=== PATIENT | male | born 1965 | race Caucasian/White ===

== ENCOUNTER 2017-10-30 14:49 | Inpatient (IN) ==
[2017-10-30] MEDS ORDERED: 0.9 % Sodium Chloride 1,000 ML IVC ONE (15:13)
--- NOTE | 2017-10-30 15:20 | Emergency Department Note ---
Disposition Clinical Impression: Acute blood loss anemia, Elevated INR GI bleed Qualifiers: GI bleed type/associated pathology: unspecified gastrointestinal hemorrhage type Qualified Code(s): K92.2 - Gastrointestinal hemorrhage, unspecified Disposition: Admitted As Inpatient Condition: Undetermined Forms: ED Satisfaction Letter General Adult HPI - General Chief complaint: ED Recheck/Abnormal Lab/Rx Stated complaint: Needs blood Time Seen by Provider: 10/30/17 14:54 Source: patient, family Mode of arrival: private vehicle Limitations: no limitations Nursing Notes Reviewed: Yes Vital Signs Reviewed: Yes - History of Present Illness HPI Narrative: Patient is a 52-year-old male with past medical history including 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 Patient complains of shortness of breath and weakness for the past 2-3 days. He states the symptoms have been progressively worsening feels like he is very fatigued. He followed up at an urgent care for evaluation. Labs were obtained and the patient was told that his hemoglobin was 8.8 yesterday. His INR is 6.4 today. He was told that he needed a blood transfusion but they were unable to do it there. He went to a different urgent care where they were also unable to do a blood transfusion came here for further management. Patient has a history of GI bleed from duodenal ulcer back in August 2017. At that time he required 9 units of pRBCs. He presented with the same symptoms then as he does now, he had shortness of breath and weakness. Patient denies any blood loss that he has noticed. He has not had a bowel movement in 4 days. He struggles with constipation and was recently restarted on docusate. He denies hemoptysis, hematuria, new bruising. He denies any trauma. He denies chest pain or palpitations.f Pain Scale: 0 - Related Data Home Medications Medication Instructions Recorded Confirmed Atorvastatin [Lipitor] 40 mg PO HS 08/03/17 10/21/17 Folic Acid [FA-8] 0.8 mg PO DAILY 08/03/17 10/21/17 Gabapentin [Neurontin] 300 mg PO TID 08/03/17 10/21/17 Indomethacin [Indocin] 25 mg PO TID 08/03/17 10/21/17 Lisinopril [Zestril] 5 mg PO DAILY 08/03/17 10/21/17 Tamsulosin [Flomax] 0.4 mg PO DAILY 08/03/17 10/21/17 Verapamil [Isoptin] 80 mg PO TID 08/03/17 10/21/17 Warfarin perPT [Coumadin perPT] 7.5 mg PO DAILY 08/03/17 10/21/17 Amitriptyline 1 tab PO DAILY 10/21/17 10/21/17 Protonix 40 mg PO DAILY 10/21/17 10/21/17 Allergies Allergy/AdvReac Type Severity Reaction Status Date / Time Bee Pollen Allergy Hives Verified 10/21/17 12:40 Penicillins Allergy Hives Verified 08/03/17 19:30 All systems ED: reviewed and negative except as stated. Review of Systems: As Per HPI Constitutional: Reports: weakness. Denies: fever, chills Eyes: Denies: vision change ENT ED: Denies: throat pain, dysphagia Cardiovascular: Denies: chest pain, palpitations Respiratory: Reports: dyspnea. Denies: cough, wheezes, hemoptysis Gastrointestinal: Reports: constipation. Denies: abdominal pain, nausea, vomiting, diarrhea Genitourinary: Reports: other (urinary retention). Denies: urgency, hematuria Musculoskeletal: Denies: back pain Neurological: Denies: headache, numbness, confusion Endocrine: Reports: fatigue Hematological/Lymphatic: Reports: easy bleeding (on warfarin) Past Medical History - Past Medical History Attestation: Yes The following information was validated with the patient. Source: patient Medical history: Reports: hypertension, renal disease, TIA Psychiatric history: Reports: no psych history - Social History Smoking Status: Current every day smoker Smokeless Tobacco Status: No Alcohol use: Reports: none Drug use: Reports: none Physical Exam - General General appearance: alert, in no apparent distress - Head Head exam: atraumatic, normocephalic - Eye Eye exam: Present: PERRL, EOMI - ENT ENT exam: mucous membranes dry - Chest Chest inspection: Present: symmetric chest wall rise - Respiratory Respiratory exam: Present: normal lung sounds bilaterally. Absent: respiratory distress, wheezes - Cardiovascular Cardiovascular exam: Present: regular rate, normal rhythm, other (radial pulses present and equal bilaterally. mild bilateral ankle edema). Absent: clicks - Abdominal Exam Abdominal exam: Present: soft, Non-Tender, normal bowel sounds. Absent: distention, guarding, rebound, rigidity - Rectal Exam Center Manager present during exam: Yes (RN) Rectal exam: Present: normal rectal tone. Absent: hemorrhoids - Neurological Exam Neurological exam: Present: alert, oriented X3, CN II-XII intact - Expanded Neurological Exam Patient oriented to: Present: person, place, time Speech: Present: fluid speech Cranial nerves: EOM function (II, III, IV, ): Normal, facial sensation (V): Normal, facial palsy (VII): Normal, spinal accessory function (XI): Normal, tongue deviation (XII): Normal Motor strength - LUE: 5/5 Motor strength - RUE: 5/5 Motor strength - LLE: 5/5 Motor strength - RLE: 5/5 Coma Scale Eye Opening: Spontaneous Coma Scale Motor Response: Obeys Commands Coma Scale Verbal Response: Oriented Coma Scale Total: 15 - Psychiatric Psychiatric exam: Present: normal affect, normal mood - Skin Skin exam: Present: warm. Absent: pallor Course Vital Signs Temperature 97.7 F 10/30/17 14:52 Pulse Rate 93 10/30/17 14:52 Respiratory Rate 12 10/30/17 14:52 Blood Pressure 103/71 10/30/17 14:52 O2 Sat by Pulse Oximetry 98 10/30/17 14:52 Temperature 97.7 F 10/30/17 15:03 Pulse Rate 85 10/30/17 15:54 Respiratory Rate 15 10/30/17 15:54 Blood Pressure 108/83 10/30/17 15:54 O2 Sat by Pulse Oximetry 98 10/30/17 15:54 Oxygen Delivery Oxygen Delivery Room Air Medical Decision Making - [facility] Narrative Medical decision making narrative: Patient has a history of prior GI bleed requiring multiple units of blood and plasma. The patient has not noticed any blood loss, melena, hematochezia. He is feeling short of breath and weak. His vitals remained stable. We will check CBC, BMP, PT/INR, troponin. I will check stool for Hemoccult blood. Check chest x-ray for shortness of breath. 16:00 Hemoglobin is decreased from yesterday. Yesterday it was 8.8 and today it is 6.9. INR continues to trend up. 7.4 today. Hemoccult positive. Vitals remained stable. He will need reversal of his INR and blood transfusion. He will also need to be admitted for further care. Had a discussion with patient and family at bedside. Discussed risks and benefits of blood transfusion and plasma transfusion. Patient and family gave their verbal consent. We will initially transfuse 2 units of PRBCs and 2 units of FFP. We will also give vitamin K. BUN 82, Cr 1.75. Troponin normal. CXR and left basilar atelectasis. No wheezing on exam, no productive cough. 17:00 Hospitalist consulted. 17:05 Discussed with hospitalist, Dr. Barnes, accepts patient. GI consult placed. All questions answered and patient and family agreeable to plan of care - Medical Records Medical records reviewed: Yes I reviewed the patient's medical records. - Lab Data Lab results reviewed: Yes I reviewed the patient's lab results. Result diagrams: 10/30/17 15:07 10/30/17 15:07 Lab Results 10/30/17 10/30/17 10/30/17 Range/Units 15:07 15:07 15:07 WBC 3.9 L (4.3-11.1) K/mcL RBC 2.36 L (4.19-5.50) M/mcL Hgb 6.9 L D (12.9-16.9) g/dL Hct 22.0 L (37.5-50.1) % MCV 93.2 (83.0-100.0) fL MCH 29.2 (28.0-33.3) pg MCHC 31.4 L (31.6-35.5) g/dL RDW 16.2 H (11.5-14.5) % Plt Count 93 L D (140-400) K/mcL MPV 14.1 H (9.4-12.4) fL Immature Gran % Test Not Performed Seg Neutrophils % 60.0 % Lymphocytes % 34.0 % Monocytes % 6.0 % Eosinophils % Test Not Performed Basophils % Test Not Performed Neutrophils # 2.3 (1.6-8.9) K/mcL Lymphocytes # 1.3 (0.6-4.6) K/mcL Monocytes # 0.2 (0.0-1.3) K/mcL Eosinophils # Test Not Performed Basophils # Test Not Performed Platelet Estimate Slight Decrease L (Normal) Immature Plt Fraction 14.3 H (1.1-6.1) % PT 83.6 H* (9.4-12.1) Seconds INR 7.4 H* Sodium 136 (136-145) mEq/L Potassium 4.6 (3.5-5.1) mEq/L Chloride 110 H (98-107) mEq/L Carbon Dioxide 21 L (23-29) mEq/L BUN 82 H (6-20) mg/dL Creatinine 1.75 H (0.70-1.30) mg/dL Est GFR ( Amer) 49 L (> 60) Est GFR (Non-Af Amer) 41 L (> 60) BUN/Creatinine Ratio 47 H (6-26) Glucose 94 (70-105) mg/dL Calculated Osmolality 307 H (280-300) Calcium 8.9 (8.6-10.3) mg/dL Troponin I < 0.03 (< 0.04) ng/mL Stool Occult Bld Scrn (Negative) Blood Type Antibody Screen Crossmatch 10/30/17 10/30/17 Range/Units 15:37 16:09 WBC (4.3-11.1) K/mcL RBC (4.19-5.50) M/mcL Hgb (12.9-16.9) g/dL Hct (37.5-50.1) % MCV (83.0-100.0) fL MCH (28.0-33.3) pg MCHC (31.6-35.5) g/dL RDW (11.5-14.5) % Plt Count (140-400) K/mcL MPV (9.4-12.4) fL Immature Gran % Seg Neutrophils % % Lymphocytes % % Monocytes % % Eosinophils % Basophils % Neutrophils # (1.6-8.9) K/mcL Lymphocytes # (0.6-4.6) K/mcL Monocytes # (0.0-1.3) K/mcL Eosinophils # Basophils # Platelet Estimate (Normal) Immature Plt Fraction (1.1-6.1) % PT (9.4-12.1) Seconds INR Sodium (136-145) mEq/L Potassium (3.5-5.1) mEq/L Chloride (98-107) mEq/L Carbon Dioxide (23-29) mEq/L BUN (6-20) mg/dL Creatinine (0.70-1.30) mg/dL Est GFR ( Amer) (> 60) Est GFR (Non-Af Amer) (> 60) BUN/Creatinine Ratio (6-26) Glucose (70-105) mg/dL Calculated Osmolality (280-300) Calcium (8.6-10.3) mg/dL Troponin I (< 0.04) ng/mL Stool Occult Bld Scrn Positive A (Negative) Blood Type A POSITIVE Antibody Screen NEGATIVE Crossmatch See Detail - Radiology Data Radiology results reviewed: Yes I reviewed the patient's radiology results. Chest X-Ray 10/30/17 15:16 IMPRESSION: Shallow inspiration with mild left basilar atelectasis. D/ / Girish Humphrey MD / Girish Humphrey MD Interpreting Provider: Girish Humphrey MD - EKG Data EKG #1 EKG attestation: Yes I reviewed and interpreted this EKG. EKG results narrative: EKG on 10/30/2017 at 1505 shows sinus rhythm with rate 86. Normal axis. QTc 449. UT interval 209.. No evidence of ST elevation or depression.
[2017-10-30 15:55] LABS: Hemoglobin 6.9 g/dL (12.9-16.9); Immature Platelets 14.3 % (1.1-6.1); Lymphocytes # 1.3 K/mcL (0.6-4.6); Mean Corpuscular HGB Conc 31.4 g/dL (31.6-35.5); Mean Corpuscular Hemoglobin 29.2 pg (28.0-33.3); Mean Corpuscular Volume 93.2 fL (83.0-100.0); Mean Platelet Volume 14.1 fL (9.4-12.4); Monocytes # 0.2 K/mcL (0.0-1.3); Red Blood Count 2.36 M/mcL (4.19-5.50); Red Cell Distribution Width 16.2 % (11.5-14.5)
[2017-10-30 16:04] LABS: Platelet Count 93 K/mcL (140-400)
[2017-10-30 16:12] LABS: BUN/Creatinine Ratio 47 (6-26); Blood Urea Nitrogen 82 mg/dL (6-20); Calcium 8.9 mg/dL (8.6-10.3); Carbon Dioxide 21 mEq/L (23-29); Chloride 110 mEq/L (98-107); Glucose 94 mg/dL (70-105); Osmolality,Calculated 307 (280-300); Potassium 4.6 mEq/L (3.5-5.1); Sodium 136 mEq/L (136-145); Troponin I < 0.03 ng/mL (< 0.04); eGFR For Non-African Americans 41 (> 60)
[2017-10-30 16:13] LABS: INR 7.4; Prothrombin Time 83.6 Seconds (9.4-12.1)
[2017-10-30 16:40] LABS: Neutrophils # 2.3 K/mcL (1.6-8.9); Platelet Estimate Slight Decrease (Normal)
[2017-10-30] MEDS ORDERED: Pantoprazole 40 MG in 0.9 % Sodium Chloride Mini Bag 100 ML IVC SCH (17:15)
--- NOTE | 2017-10-30 17:58 | Emergency Department Note ---
Disposition Clinical Impression: Acute blood loss anemia, Elevated INR GI bleed Qualifiers: GI bleed type/associated pathology: unspecified gastrointestinal hemorrhage type Qualified Code(s): K92.2 - Gastrointestinal hemorrhage, unspecified Disposition: Admitted As Inpatient Condition: Undetermined Forms: ED Satisfaction Letter General Adult HPI - General Chief complaint: ED Recheck/Abnormal Lab/Rx Stated complaint: Needs blood Time Seen by Provider: 10/30/17 14:54 Source: patient, family Mode of arrival: private vehicle Limitations: no limitations - History of Present Illness Pain Scale: 0 - Related Data Home Medications Medication Instructions Recorded Confirmed Atorvastatin [Lipitor] 40 mg PO HS 08/03/17 10/21/17 Folic Acid [FA-8] 0.8 mg PO DAILY 08/03/17 10/21/17 Gabapentin [Neurontin] 300 mg PO TID 08/03/17 10/21/17 Indomethacin [Indocin] 25 mg PO TID 08/03/17 10/21/17 Lisinopril [Zestril] 5 mg PO DAILY 08/03/17 10/21/17 Tamsulosin [Flomax] 0.4 mg PO DAILY 08/03/17 10/21/17 Verapamil [Isoptin] 80 mg PO TID 08/03/17 10/21/17 Warfarin perPT [Coumadin perPT] 7.5 mg PO DAILY 08/03/17 10/21/17 Amitriptyline 1 tab PO DAILY 10/21/17 10/21/17 Protonix 40 mg PO DAILY 10/21/17 10/21/17 Allergies Allergy/AdvReac Type Severity Reaction Status Date / Time Bee Pollen Allergy Hives Verified 10/21/17 12:40 Penicillins Allergy Hives Verified 08/03/17 19:30 Constitutional: Reports: weakness. Denies: fever, chills Eyes: Denies: vision change ENT ED: Denies: throat pain, dysphagia Cardiovascular: Denies: chest pain, palpitations Respiratory: Reports: dyspnea. Denies: cough, wheezes, hemoptysis Gastrointestinal: Reports: constipation. Denies: abdominal pain, nausea, vomiting, diarrhea Genitourinary: Reports: other (urinary retention). Denies: urgency, hematuria Musculoskeletal: Denies: back pain Neurological: Denies: headache, numbness, confusion Endocrine: Reports: fatigue Hematological/Lymphatic: Reports: easy bleeding (on warfarin) Past Medical History - Past Medical History Medical history: Reports: hypertension, renal disease, TIA Psychiatric history: Reports: no psych history - Social History Smoking Status: Current every day smoker Smokeless Tobacco Status: No Alcohol use: Reports: none Drug use: Reports: none Physical Exam - General Limitations: no limitations General appearance: alert, in no apparent distress Course Vital Signs Temperature 97.7 F 10/30/17 14:52 Pulse Rate 93 10/30/17 14:52 Respiratory Rate 12 10/30/17 14:52 Blood Pressure 103/71 10/30/17 14:52 O2 Sat by Pulse Oximetry 98 10/30/17 14:52 Temperature 97.7 F 10/30/17 15:03 Pulse Rate 84 10/30/17 17:57 Respiratory Rate 14 10/30/17 17:57 Blood Pressure 139/92 10/30/17 17:57 O2 Sat by Pulse Oximetry 96 10/30/17 17:57 Oxygen Delivery Oxygen Delivery Room Air Medical Decision Making - Lab Data Result diagrams: 10/30/17 15:07 10/30/17 15:07 Lab Results 10/30/17 10/30/17 10/30/17 Range/Units 15:07 15:07 15:07 WBC 3.9 L (4.3-11.1) K/mcL RBC 2.36 L (4.19-5.50) M/mcL Hgb 6.9 L D (12.9-16.9) g/dL Hct 22.0 L (37.5-50.1) % MCV 93.2 (83.0-100.0) fL MCH 29.2 (28.0-33.3) pg MCHC 31.4 L (31.6-35.5) g/dL RDW 16.2 H (11.5-14.5) % Plt Count 93 L D (140-400) K/mcL MPV 14.1 H (9.4-12.4) fL Immature Gran % Test Not Performed Seg Neutrophils % 60.0 % Lymphocytes % 34.0 % Monocytes % 6.0 % Eosinophils % Test Not Performed Basophils % Test Not Performed Neutrophils # 2.3 (1.6-8.9) K/mcL Lymphocytes # 1.3 (0.6-4.6) K/mcL Monocytes # 0.2 (0.0-1.3) K/mcL Eosinophils # Test Not Performed Basophils # Test Not Performed Platelet Estimate Slight Decrease L (Normal) Immature Plt Fraction 14.3 H (1.1-6.1) % PT 83.6 H* (9.4-12.1) Seconds INR 7.4 H* Sodium 136 (136-145) mEq/L Potassium 4.6 (3.5-5.1) mEq/L Chloride 110 H (98-107) mEq/L Carbon Dioxide 21 L (23-29) mEq/L BUN 82 H (6-20) mg/dL Creatinine 1.75 H (0.70-1.30) mg/dL Est GFR ( Amer) 49 L (> 60) Est GFR (Non-Af Amer) 41 L (> 60) BUN/Creatinine Ratio 47 H (6-26) Glucose 94 (70-105) mg/dL Calculated Osmolality 307 H (280-300) Calcium 8.9 (8.6-10.3) mg/dL Troponin I < 0.03 (< 0.04) ng/mL Stool Occult Bld Scrn (Negative) Blood Type Antibody Screen Crossmatch 10/30/17 10/30/17 Range/Units 15:37 16:09 WBC (4.3-11.1) K/mcL RBC (4.19-5.50) M/mcL Hgb (12.9-16.9) g/dL Hct (37.5-50.1) % MCV (83.0-100.0) fL MCH (28.0-33.3) pg MCHC (31.6-35.5) g/dL RDW (11.5-14.5) % Plt Count (140-400) K/mcL MPV (9.4-12.4) fL Immature Gran % Seg Neutrophils % % Lymphocytes % % Monocytes % % Eosinophils % Basophils % Neutrophils # (1.6-8.9) K/mcL Lymphocytes # (0.6-4.6) K/mcL Monocytes # (0.0-1.3) K/mcL Eosinophils # Basophils # Platelet Estimate (Normal) Immature Plt Fraction (1.1-6.1) % PT (9.4-12.1) Seconds INR Sodium (136-145) mEq/L Potassium (3.5-5.1) mEq/L Chloride (98-107) mEq/L Carbon Dioxide (23-29) mEq/L BUN (6-20) mg/dL Creatinine (0.70-1.30) mg/dL Est GFR ( Amer) (> 60) Est GFR (Non-Af Amer) (> 60) BUN/Creatinine Ratio (6-26) Glucose (70-105) mg/dL Calculated Osmolality (280-300) Calcium (8.6-10.3) mg/dL Troponin I (< 0.04) ng/mL Stool Occult Bld Scrn Positive A (Negative) Blood Type A POSITIVE Antibody Screen NEGATIVE Crossmatch See Detail Attestation Statement - Attestation Attestation: I examined this patient and my medical decision-making was reviewed with the Resident Physician. I agree with the documented findings, disposition and treatment plan as described except to the extent set forth below. Brown heme positive stool on rectal examination. Hemodynamic been normal while in the emergency department. I discussed the risk and benefits of blood and plasma transfusion with the patient at bedside, as well as with his family members. He agreed to proceed. He has a soft, nontender abdomen on my examination. Vitamin K, red cells and plasma ordered. Patient will be admitted.
[2017-10-30] MEDS ORDERED: Acetaminophen 325 MG TABLET PO PRN (18:03)
[2017-10-30] MEDS ORDERED: Naloxone 0.4 MG/ML INJ IVP PRN (18:03)
[2017-10-30] MEDS ORDERED: 0.9 % Sodium Chloride 250 ML ONE (18:25)
--- NOTE | 2017-10-30 18:32 | Internal Med History&Physical ---
<AlexsandrafloydcandelariaSolomon joaquin - Last Filed: 10/30/17 19:17> Date of Encounter: 10/30/17 Time of Encounter: 17:30 Internal Medicine - H&P: HPI Chief complaint: Weakness/SOB/Drop in Hgb Admitted From: Emergency Dept Plans for Post Hospital Care: Home History of present illness: Mr. Humphrey is a 52 year old male w/PMH of HTN, HLD, urinary retention, chronic constipation, CVA/TIA, CKD, and previous GI bleed in August 2017 presents from the ED w/CC of weakness, SOB, and drop in Hgb for the past 2-3 days. Pt. went to Urgent Care yesterday and Hgb was 8.8. INR is 7.4 today. Pt. reports previous GI bleed in August 2017 which required transfusion of 9 units of PRBCs and 1 unit FFP at [facility]. States his sx are the same as in August. Reports no BM in 4 days. No alleviating or aggravating factors. Pt. reports weakness, fatigue, constipation, and SOB but denies recent illness, fever, chills, nausea, vomiting , hemoptysis, hematuria, new bruising, trauma, headache, changes in vision, unusual bleeding, abdominal pain, diarrhea, dizziness, lightheadedness, numbness , tingling, pre-syncope, or syncope. Past Med Surg Social Fam HX - Past Medical History Source: patient, old records reviewed, obtained from family Medical history: CVA, GI bleed, hyperlipidemia, hypertension, renal disease, TIA Additional medical history: Open heart sugery july 2015. Brain surgery may 2016. 10 TIAs. CVA w/residual weakness of right side Psychiatric history: no psych history - Past Surgical History Additional surgical history: AORTIC VALVE REPLACEMENT. wrist surgery rt. Open heart sugery july 2015. Brain surgery may 2016. Stomach surgery - Social History Smoking Status: Current every day smoker Packs per day: 4-5 cigarettes daily Smokeless Tobacco Status: No Alcohol use: none Drug use: none Current living situation: Home, With Family Activity Level: Independent ambulation Recent Out of Country Travel Within the Last 8 Weeks: No Exposure or Possible Exposure to Illness During Travel: No - Family History Father History Unknown: Yes Race: Family Member Ethnicity: Non- Living Status: Mother Race: Family Member Ethnicity: Non- Living Status: Age at : 68 Cause of : CVA Hx Family Cardiac Disorders: Yes (CVA) Hx Family Neurologic Disorders: Yes (CVA) Brother Race: Family Member Ethnicity: Non- Living Status: Age at : 50 Cause of : Brain aneurysm Hx Family Cardiac Disorders: Yes (Brain aneurysm) Internal Medicine - H&P: Meds Albuterol Sulfate [Albuterol Inhaler] 1 puff IH Q4H PRN 10/30/17 [History] Amitriptyline HCl 100 mg PO HS 10/30/17 [History] Aspirin [Lo-Dose Aspirin EC] 81 mg PO DAILY 10/30/17 [History] Atorvastatin [Lipitor] 40 mg PO HS 10/30/17 [History] Docusate [Colace] 100 mg PO DAILY PRN 10/30/17 [History] Ferrous Sulfate 325 mg PO DAILY 10/30/17 [History] Folic Acid 0.8 mg PO DAILY 10/30/17 [History] Gabapentin [Neurontin] 300 mg PO TID 10/30/17 [History] Lisinopril/Hydrochlorothiazide [Zestoretic 20-25 mg Tablet] 1 tab PO DAILY 10/30 [History] Melatonin 5 mg PO HS PRN 10/30/17 [History] Pantoprazole Sodium [Protonix] 40 mg PO DAILY 10/30/17 [History] Sennosides [Senna] 17.2 mg PO HS PRN 10/30/17 [History] Tamsulosin [Flomax] 0.4 mg PO DAILY 10/30/17 [History] Umeclidinium Brm/Vilanterol Tr [Anoro Ellipta 62.5-25 Mcg INH] 1 puff IH DAILY 10/30/17 [History] Verapamil HCl [Verapamil ER] 120 mg PO DAILY 10/30/17 [History] Warfarin [Coumadin] 11.25 mg PO [id number] 10/30/17 [History] Warfarin [Coumadin] 15 mg PO SUTH 10/30/17 [History] 3 Allergy/AdvReac Type Severity Reaction Status Date / Time Bee Pollen Allergy Hives Verified 10/30/17 19:37 Penicillins Allergy Hives Verified 10/30/17 19:37 tree nut Allergy Swelling Verified 10/30/17 19:37 of Lip/Tongue/Throat All Systems PM: A 10-system review of systems was performed and is negative for pertinent findings except as documented above in the HPI. - Constitutional Constitutional: as per HPI, fatigue, weakness, no chills, no fever(s), no night sweats - EENT Eyes: no change in vision, no discharge, no pain, no photophobia Ears: no ear discharge, no ear pain, no tinnitus Nose, mouth and throat: no dysphagia, no nasal discharge, no neck pain, no sore throat - Breasts Breasts: as per HPI - Cardiovascular Cardiovascular ROS IM: as per HPI, dyspnea, dyspnea on exertion, no chest pain, no diaphoresis, no lightheadedness, no palpitations, no syncope - Respiratory Respiratory: as per HPI, dyspnea, dyspnea on exertion, no cough, no wheezing, no excessive phlegm production - Gastrointestinal Gastrointestinal: as per HPI, constipation, no abdominal pain, no diarrhea, no hematemesis, no hematochezia, no melena, no nausea, no vomiting - Genitourinary Genitourinary ROS male: as per HPI, difficulty urinating - Musculoskeletal Musculoskeletal ROS IM: no numbness, no tingling - Integumentary Integumentary IM: no rash, no unusual bruising - Neurological Neurological ROS: as per HPI, weakness, no confusion, no convulsions, no focal weakness, no numbness, no tingling, no tremor(s) - Psychiatric Psychiatric: as per HPI - Endocrine Endocrine IM: as per HPI - Hematologic/Lymphatic Hematologic/Lymphatic: no easy bruising - Allergic/Immunologic Allergic/Immunologic: as per HPI - Constitutional Vitals: Temp Pulse Resp BP Pulse Ox 97.7 F 84 14 139/92 96 10/30/17 15:03 10/30/17 17:57 10/30/17 17:57 10/30/17 17:57 10/30/17 17:57 General appearance: Present: mild distress (Fatigue/weakness), A&O X 3, pleasant , underweight, answers questions appropriately Exam: Pt. examined at bedside in ED. Pt. was sleepy and reports severe weakness over the past several days similar to GI bleed in August 2017. States he has not had BM in several (4) days. Reports hx of constipation. Also reports SOB. Denies unusual bleeding. HR RRR @ 85. RR 16. Temp 98.5F. BP 128/89. SpO2 98% on RA. Pt. denies other complaints during exam. - Head Head exam: Present: atraumatic, normocephalic - Eye Eye exam: Present: PERRL, conjuntiva pink, sclera anicteric Pupils: Present: PERRL - ENT ENT exam: Present: normal exam - Neck Neck exam general surgery: Present: normal inspection, supple, trachea midline. Absent: lymphadenopathy - Respiratory Respiratory exam: Present: CTAB. Absent: accessory muscle use, rales, rhonchi, wheezes - Cardiovascular Cardiovascular exam: Present: RRR, +S1, +S2. Absent: diastolic murmur, gallop, rubs, systolic murmur - GI/Abdominal GI/Abdominal exam: Present: normal bowel sounds, soft, no peritoneal signs. Absent: distended, tenderness - Rectal Rectal exam: Present: deferred - Additional comments: exam deferred. - Extremities Exam Extremities exam: Present: warm, radial pulses palpable and symmetrical. Absent : calf tenderness, cyanotic, pedal edema - Back Exam Back exam: Present: normal inspection - Neurological Exam Neurological exam: Present: alert, CN II-XII intact, oriented X3, no focal deficits. Absent: pronater drift, facial droop, speech deficit - Psychiatric Psychiatric exam: Present: anxious - Skin Skin exam: Present: dry, intact Internal Med - H&P Results - Labs CBC & Chem 7: 10/30/17 15:07 10/30/17 15:07 Labs: Short CBC 10/30/17 Range/Units 15:07 WBC 3.9 L (4.3-11.1) K/mcL Hgb 6.9 L D (12.9-16.9) g/dL Hct 22.0 L (37.5-50.1) % Plt Count 93 L D (140-400) K/mcL Neutrophils # 2.3 (1.6-8.9) K/mcL BMP 10/30/17 15:07 Sodium 136 Potassium 4.6 Chloride 110 H Carbon Dioxide 21 L BUN 82 H Creatinine 1.75 H Glucose 94 Calcium 8.9 Cardiac Enzymes 10/30/17 Range/Units 15:07 Troponin I < 0.03 (< 0.04) ng/mL - Impressions ITS Impressions Chest X-Ray 10/30/17 15:16 IMPRESSION: Shallow inspiration with mild left basilar atelectasis. D/ / Girish Humphrey MD / Girish Humphrey MD Interpreting Provider: Girish Humphrey MD - Diagnostic Studies Chest x-ray Additional comments: Impressions Chest X-Ray 10/30/17 15:16 IMPRESSION: Shallow inspiration with mild left basilar atelectasis. D/ / Girish Humphrey MD / Girish Humphrey MD Interpreting Provider: Girish Humphrey MD - Assessment and plan (1) GI bleed Current Visit: Yes Status: Acute Assessment and plan: Acute GI bleed. Pt. reports weakness, SOB, and drop in Hgb for the past 2-3 days. Pt. went to Urgent Care yesterday and Hgb was 8.8. INR is 7.4 today. Pt. reports previous GI bleed in August 2017 which required transfusion of 9 units of PRBCs and 1 unit FFP at [facility]. Old medical records ordered. States his sx are the same as in August. Pt. on Coumadin d/t aortic pig valve replacement and hx of CVA/ TIAs x10. Pt. denies unusual bleeding, however fecal hemoccult positive. Pt. typed and screened and is A positive with negative antibody screen. GI consult ordered and discussed with Dr. Raines with recommendation to begin PRBC transfusion now before patient's Hgb drops too low as well as close monitoring of patient's INR. Recommendation for INR to be between 1.5 and 2.0 for EGD. I appreciate the consult and recommendations as always. Platelets 93 on admission. 2 units PRBCs ordered in the ED along with 2 units FFP. 2 additional units of PRBCs ordered due to patient's previous history. H&H every 4 hours. Consider placing pt. to ICU under recommendation of Dr. Raines if Hgb continues to drop. NPO except medications. 0.9 NS IV fluids @ 100 mLs/HR. Falls/safety precautions and up with assist d/t weakness. Protonix drip. Pt. discussed w/Dr. Barnes who agrees w/plan of care. Pt. is high risk for further morbidity and complications d/t current GI bleed of unknown origin, drop in Hgb from 8.8 to 6.9 today, hx of GI bleed in August 2017 requiring transfusion of 9 units PRBCs, hx of TIAs/CVA/aortic pig valve on Coumadin, INR of 7.4 today, hx, and risk factors. Inpatient. Qualifiers: GI bleed type/associated pathology: unspecified gastrointestinal hemorrhage type Qualified Code(s): K92.2 - Gastrointestinal hemorrhage, unspecified (2) Acute blood loss anemia Current Visit: Yes Status: Acute Assessment and plan: Acute blood loss anemia. Pt. states current sx same as in August 2017 w/previous GI bleed requiring transfusion of 9 units of PRBCs and 1 unit FFP. Hgb 8.8 yesterday. 6.9 today. Pt. typed and screened and is A positive w/negative antibody screen. Platelets 93 on admission. 2 units PRBCs ordered in the ED along with 2 units FFP. 2 additional units of PRBCs ordered due to patient's previous history. H&H every 4 hours. Fecal Hemoccult positive. Patient denies unusual bleeding. (3) Elevated INR Current Visit: Yes Status: Acute Assessment and plan: Acutely elevated INR of 7.4 today. Pt. on Coumadin d/t hx of pig valve and CVA/ TIAs. Pt. given Phytonadione in ED. Monitor f/u labs closely to determine need for additional vitamin K. GI consulted and pt. discussed w/Dr. Raines w/ recommendation for INR between 1.5 and 2.0 for EGD. (4) HTN (hypertension) Current Visit: Yes Status: Chronic Assessment and plan: Hx of chronic HTN. Monitor pt. and VS. Continue patient's lisinopril and verapamil. Qualifiers: Hypertension type: essential hypertension Qualified Code(s): I10 - Essential (primary) hypertension (5) HLD (hyperlipidemia) Current Visit: Yes Status: Chronic Assessment and plan: Hx of chronic HLD. Lipid panel in a.m. labs. Continue pts. Lipitor. Qualifiers: Hyperlipidemia type: pure hypercholesterolemia Qualified Code(s): E78.00 - Pure hypercholesterolemia, unspecified; E78.0 - Pure hypercholesterolemia (6) CKD (chronic kidney disease) stage 3, GFR 30-59 ml/min Current Visit: Yes Status: Chronic Assessment and plan: Hx of CKD, currently stage 3 w/GFR of 41 and creatinine of 1.75. Monitor I&O and daily weight. Will avoid nephrotoxins. 0.9 NS IV fluids @ 100 mLs/HR. Monitor pt. and f/u labs. (7) Hx-TIA (transient ischemic attack) Current Visit: Yes Status: Resolved Assessment and plan: Hx of CVA/TIAs x10. Currently stable. Some residual weakness remaining on right side. (8) DVT prophylaxis Current Visit: Yes Status: Acute Assessment and plan: Bilateral SCDs on LEs for DVT prophylaxis d/t current GI bleed. (9) Weakness Current Visit: Yes Status: Acute Assessment and plan: Acute generalized weakness d/t current GI bleed and acute blood loss anemia. Transfuse w/PRBCs and FFP as needed. Monitor pt. and f/u labs. Cardiac telemetry. Falls/safety precautions and up with assist only. - Time Spent With Patient Total time spent is greater than 50% in coordination of care (as documented) at patient's floor/unit and/or counseling patient: Greater than 35 minutes <Lorraine Barnes - Last Filed: 10/31/17 00:56> Date of Encounter: 10/31/17 Internal Medicine - H&P: HPI History of present illness: Mr. Humphrey is a 52 year old male All Systems PM: A 10-system review of systems was performed and is negative for pertinent findings except as documented above in the HPI. - Constitutional Vitals: Temp Pulse Resp BP Pulse Ox 98.2 F 98 17 146/108 98 10/31/17 00:37 10/31/17 00:37 10/31/17 00:37 10/31/17 00:37 10/31/17 00:37 Internal Med - H&P Results - Labs CBC & Chem 7: 10/31/17 00:18 10/30/17 15:07 Labs: Short CBC 10/31/17 Range/Units 00:18 Hgb 8.8 L D (12.9-16.9) g/dL Hct 25.7 L (37.5-50.1) % - Assessment and plan (1) GI bleed Current Visit: Yes Status: Acute Qualifiers: GI bleed type/associated pathology: unspecified gastrointestinal hemorrhage type Qualified Code(s): K92.2 - Gastrointestinal hemorrhage, unspecified (2) Acute blood loss anemia Current Visit: Yes Status: Acute (3) Elevated INR Current Visit: Yes Status: Acute (4) HTN (hypertension) Current Visit: Yes Status: Chronic Qualifiers: Hypertension type: essential hypertension Qualified Code(s): I10 - Essential (primary) hypertension (5) HLD (hyperlipidemia) Current Visit: Yes Status: Chronic Qualifiers: Hyperlipidemia type: pure hypercholesterolemia Qualified Code(s): E78.00 - Pure hypercholesterolemia, unspecified; E78.0 - Pure hypercholesterolemia (6) CKD (chronic kidney disease) stage 3, GFR 30-59 ml/min Current Visit: Yes Status: Chronic (7) Hx-TIA (transient ischemic attack) Current Visit: Yes Status: Resolved (8) DVT prophylaxis Current Visit: Yes Status: Acute (9) Weakness Current Visit: Yes Status: Acute - Time Spent With Patient Total time spent is greater than 50% in coordination of care (as documented) at patient's floor/unit and/or counseling patient: - Attending Attestation I have independently seen and examined patient. I agree with assessment/plan of the Nurse Practitioner, unless as noted below. 52 year old male with history of multiple CVAs now on coumadin and also PUD presented for worsening anemia. He had a large peptic ulcer that was treated at [facility] requiring 9 units PRBCs. Most recently, He had symptoms of SOB for several days. Blood work at urgent care revealed low hemoglobin and elevated INR and so he was asked to come in. He was given dose of vitamin K, FFP x2, and PRBC x2 Currently he is hemodynamically stable. Currently we will give 2 Units PRBC additional. He is awake, alert, oriented on my exam. Has slight pallor, MMM, and cap refill time normal. H&H 7.4, we are contacting Dr. Raines, who is the on-call GI physician for recommendations. He will be closely monitored in the ICU for now
[2017-10-30] MEDS: Pantoprazole 40 MG in 0.9 % Sodium Chloride Mini Bag 100 ML IVC SCH (21:21)
[2017-10-30] MEDS: 0.9 % Sodium Chloride 1,000 ML IVC SCH (21:21)
[2017-10-31 00:48] LABS: Hematocrit 25.7 % (37.5-50.1)
[2017-10-31 00:49] LABS: Hemoglobin 8.8 g/dL (12.9-16.9)
[2017-10-31] MEDS: Pantoprazole 40 MG in 0.9 % Sodium Chloride Mini Bag 100 ML IVC SCH ×5 (01:48→23:20)
[2017-10-31 02:24] LABS: Hemoglobin 8.3 g/dL (12.9-16.9)
[2017-10-31 02:26] LABS: Hematocrit 24.1 % (37.5-50.1)
[2017-10-31] MEDS: 0.9 % Sodium Chloride 1,000 ML IVC SCH (04:51)
[2017-10-31 05:00] LABS: Basophils % 0.6 %; Eosinophils % 0.3 %; Hematocrit 20.3 % (37.5-50.1); Hemoglobin 7.5 g/dL (12.9-16.9); Immature Granulocytes % 1.4 % (0-4); Lymphocytes # 0.9 K/mcL (0.6-4.6); Lymphocytes % 25.1 %; Mean Corpuscular HGB Conc 36.9 g/dL (31.6-35.5); Mean Corpuscular Hemoglobin 34.1 pg (28.0-33.3); Mean Corpuscular Volume 92.3 fL (83.0-100.0); Mean Platelet Volume 14.5 fL (9.4-12.4); Monocytes # 0.2 K/mcL (0.0-1.3); Monocytes % 4.8 %; Neutrophils # 2.4 K/mcL (1.6-8.9); Red Cell Distribution Width 15.9 % (11.5-14.5); Segmented Neutrophils % 67.8 %
[2017-10-31 05:03] LABS: Platelet Count 67 K/mcL (140-400)
[2017-10-31 05:05] LABS: INR 2.3; Prothrombin Time 25.9 Seconds (9.4-12.1)
[2017-10-31 05:21] LABS: Alanine Aminotransferase 57 Units/L (7-52); Albumin 2.9 g/dL (3.5-5.7); Albumin/Globulin Ratio 1.3 (1.1-2.2); Alkaline Phosphatase 109 Units/L (34-104); Aspartate Amino Transferase 49 Units/L (13-39); BUN/Creatinine Ratio 53 (6-26); Bilirubin,Total 0.4 mg/dL (0.3-1.0); Blood Urea Nitrogen 72 mg/dL (6-20); Calcium 8.2 mg/dL (8.6-10.3); Carbon Dioxide 18 mEq/L (23-29); Chloride 113 mEq/L (98-107); Chol/HDL Ratio 4.5 (0-4.9); Cholesterol 77 mg/dL (< 200); Globulin 2.3 g/dL (2.4-3.5); Glucose 97 mg/dL (70-105); HDL Cholesterol 17 mg/dL (40-59); LDL Cholesterol,Calculated 36 mg/dL (0-99); Magnesium 1.8 mg/dL (1.6-2.6); Osmolality,Calculated 307 (280-300); Potassium 4.1 mEq/L (3.5-5.1); Sodium 138 mEq/L (136-145); Total Protein 5.2 g/dL (6.4-8.9); Triglycerides 118 mg/dL (< 150); eGFR For Non-African Americans 55 (> 60)
[2017-10-31] MEDS ORDERED: Ondansetron 4 MG/2 ML VIAL ONE (06:28)
[2017-10-31] MEDS: Ondansetron 4 MG/2 ML VIAL IVP PRN ×2 (06:36→20:56)
[2017-10-31 06:47] LABS: Bilirubin,Urine Negative (Negative); Blood,Urine Trace (Negative); Clarity,Urine Cloudy (Clear); Color,Urine Yellow (Yellow); Glucose,Urine (UA) Normal (Normal); Ketones,Urine Negative (Negative); Leukocyte Esterase,Urine Moderate (Negative); Nitrite,Urine Negative (Negative); Protein,Urine Negative (Neg-Trace); Urobilinogen,Urine Normal (Normal)
[2017-10-31 06:50] LABS: Bacteria,Urine Moderate per hpf (None-Few); RBC,Urine 0-3 per hpf (0-3)
[2017-10-31 07:48] LABS: Hematocrit 18.7 % (37.5-50.1); Hemoglobin 8.3 g/dL (12.9-16.9)
[2017-10-31 12:40] LABS: Hematocrit 16.8 % (37.5-50.1)
--- NOTE | 2017-10-31 16:00 | Gastroenterology Consult Note ---
<Quinn Sweet - Last Filed: 10/31/17 15:57> Date of Encounter: 10/31/17 Time of Encounter: 11:05 - Assessment and plan (1) GI bleed Current Visit: Yes Status: Acute Assessment and plan: He reports previous GI bleed in August 2017 which required several units of PRBCs and FFP at [facility]. He reports EGD and colonoscopy that was normal per patient report. He denies any melena or hematochezia. Plan for push enteroscopy once INR around 1.5. Qualifiers: GI bleed type/associated pathology: unspecified gastrointestinal hemorrhage type Qualified Code(s): K92.2 - Gastrointestinal hemorrhage, unspecified (2) Acute blood loss anemia Current Visit: Yes Status: Acute Assessment and plan: Hgb on admission was 6.9 and today Hgb 8.8 after 2 units PRBC. Hgb 8.8 on 10/29. Continue to monitor CBC and transfuse PRBC as needed. (3) Elevated INR Current Visit: Yes Status: Acute Assessment and plan: On admission INR 7.4 and after 2 units FFP INR 2.3, plan for push enteroscopy once INR closer to 1.5. (4) History of alcohol abuse Current Visit: Yes Status: Acute Assessment and plan: Former heavy drinker, last drink 5-6 years ago. (5) Thrombocytopenia Current Visit: Yes Status: Acute Assessment and plan: Plts 93 on admission and 67 today. Pt has never been diagnosed with cirrhosis, will check CT abd to evaluate. - Time Spent With Patient Total time spent is greater than 50% in coordination of care (as documented) at patient's floor/unit and/or counseling patient: GI History of Present Illness - Data of Consult Patient: new to practice Consult date: 10/31/17 Requesting Physician: Andre Pruitt MD - Consult Narrative Reason for consult: GI Bleed History of present illness: Mr. Humphrey is a 52 year old male with PMHx of CVA/TIA, GI bleed, HLD, HTN, CKD who was admitted with anemia. He reports previous GI bleed in August 2017 which required transfusion of 9 units of PRBCs and 1 unit FFP at [facility]. Hgb on admission was 6.9 and today Hgb 8.8 after 2 units PRBC. Hgb 8.8 on 10/29. On admission INR 7.4 and after 2 units FFP INR 2.3. He denies fever, chills, chest pain, abdominal pain, nausea, vomiting, melena, or hematochezia. He denies any history of cirrhosis. Procedures: EGD and colonoscopy August 2017 at [facility] normal per patient report. NSAIDs: ASA Anticoagulation: Coumadin Past Med Surg Social Fam HX - Past Medical History Medical history: CVA, GI bleed, hyperlipidemia, hypertension, renal disease, TIA Additional medical history: Open heart sugery july 2015. Brain surgery may 2016. 10 TIAs. CVA w/residual weakness of right side Psychiatric history: no psych history - Past Surgical History Additional surgical history: AORTIC VALVE REPLACEMENT. wrist surgery rt. Open heart sugery july 2015. Brain surgery may 2016. Stomach surgery - Social History Smoking Status: Current every day smoker Packs per day: 4-5 cigarettes daily Smokeless Tobacco Status: No Alcohol use: none Drug use: none - Family History Father History Unknown: Yes Race: Family Member Ethnicity: Non- Living Status: Mother Race: Family Member Ethnicity: Non- Living Status: Age at : 68 Cause of : CVA Hx Family Cardiac Disorders: Yes (CVA) Hx Family Neurologic Disorders: Yes (CVA) Brother Race: Family Member Ethnicity: Non- Living Status: Age at : 50 Cause of : Brain aneurysm Hx Family Cardiac Disorders: Yes (Brain aneurysm) - Gastrointestinal Gastrointestinal: Present: as per HPI - Constitutional Constitutional: as per HPI - EENT Eyes: as per HPI Ears: Present: as per HPI Nose, mouth and throat: Present: as per HPI - Cardiovascular Cardiovascular ROS: Present: as per HPI - Respiratory Respiratory IM: Present: as per HPI - Genitourinary Genitourinary: Absent: change in color, Urinary frequency - Neurological ROS Neurological GI: Present: as per HPI - Hematologic/Lymphatic Hematologic/Lymphatic pediatric: Present: as per HPI - Musculoskeletal Musculoskeletal ROS GI: Present: as per HPI - Integumentary Integumentary GI: Present: as per HPI - Psychiatric ROS Psychiatric GI: Present: as per HPI - Endocrine Endocrine IM: Present: as per HPI - Constitutional Vitals: Temp Pulse Resp BP Pulse Ox 97.4 F L 110 24 149/100 100 10/31/17 08:11 10/31/17 15:00 10/31/17 15:00 10/31/17 15:00 10/31/17 15:00 General appearance: Present: cooperative, A&O X 3, no acute distress, answers questions appropriately - Head Head exam: Present: atraumatic, normocephalic - Eye Eye exam: Present: normal appearance, sclera anicteric - ENT ENT exam: Present: mucous membranes dry - Neck Neck exam general surgery: Present: normal inspection, trachea midline - Respiratory Respiratory exam: Present: CTAB. Absent: rales, rhonchi - Cardiovascular Cardiovascular exam: Present: RRR, +S1, +S2 - GI/Abdominal GI/Abdominal exam: Present: soft, no peritoneal signs. Absent: distended, firm , guarding, tenderness - Rectal Rectal exam: Present: deferred - Extremities Exam Extremities exam: Present: warm - Neurological Exam Neurological exam: Present: no focal deficits - Psychiatric Psychiatric exam: Present: normal affect, normal mood - Skin Skin exam: Present: dry, intact, normal color, warm Results - Labs CBC & Chem 7: 10/31/17 11:29 10/31/17 04:23 Labs: Last Result Calcium 8.2 mg/dL (8.6-10.3) L 10/31/17 04:23 Troponin I < 0.03 ng/mL (< 0.04) 10/30/17 15:07 Triglycerides 118 mg/dL (< 150) 10/31/17 04:23 Entire Visit Hgb 7.0 g/dL (12.9-16.9) L 10/31/17 11:29 Hct 16.8 % (37.5-50.1) L 10/31/17 11:29 PT 25.9 Seconds (9.4-12.1) H D 10/31/17 04:23 Total Bilirubin 0.4 mg/dL (0.3-1.0) 10/31/17 04:23 AST 49 Units/L (13-39) H 10/31/17 04:23 ALT 57 Units/L (7-52) H 10/31/17 04:23 - ABG ABG results: PT/INR, D-dimer PT 25.9 Seconds (9.4-12.1) H D 10/31/17 04:23 - Impressions Impressions Abdomen CT 10/31/17 14:36 IMPRESSION: No CT features of hepatic cirrhosis. Incidentally noted pulmonary emphysema and right basilar atelectasis versus infiltrate. D/ / Tim Darling MD / Tim Darling MD Interpreting Provider: Tim Darling MD Consult Discharge Plan - Plan Referrals: Mona Andersen, [employer] [Primary Care Provider] - <Nery Rainesed - Last Filed: 10/31/17 18:23> Date of Encounter: 10/31/17 Time of Encounter: 18:00 - Time Spent With Patient Total time spent is greater than 50% in coordination of care (as documented) at patient's floor/unit and/or counseling patient: GI History of Present Illness - Data of Consult Requesting Physician: Andre Pruitt MD - Consult Narrative History of present illness: Mr. Humphrey is a 52 year old male - Constitutional Vitals: Temp Pulse Resp BP Pulse Ox 98.4 F 107 17 141/101 100 10/31/17 17:30 10/31/17 17:51 10/31/17 17:51 10/31/17 17:51 10/31/17 17:51 Results - Labs CBC & Chem 7: 10/31/17 16:48 10/31/17 04:23 Labs: Last Result Calcium 8.2 mg/dL (8.6-10.3) L 10/31/17 04:23 Troponin I < 0.03 ng/mL (< 0.04) 10/30/17 15:07 Triglycerides 118 mg/dL (< 150) 10/31/17 04:23 Entire Visit Hgb 6.4 g/dL (12.9-16.9) L 10/31/17 16:48 Hct 19.8 % (37.5-50.1) L 10/31/17 16:48 PT 25.9 Seconds (9.4-12.1) H D 10/31/17 04:23 Total Bilirubin 0.4 mg/dL (0.3-1.0) 10/31/17 04:23 AST 49 Units/L (13-39) H 10/31/17 04:23 ALT 57 Units/L (7-52) H 10/31/17 04:23 - ABG ABG results: PT/INR, D-dimer PT 25.9 Seconds (9.4-12.1) H D 10/31/17 04:23 - Impressions Impressions Abdomen CT 10/31/17 14:36 IMPRESSION: No CT features of hepatic cirrhosis. Incidentally noted pulmonary emphysema and right basilar atelectasis versus infiltrate. D/ / Tim Darling MD / Tim Darling MD Interpreting Provider: Tim Darling MD - Attending Attestation I have personally performed a face to face evaluation on this patient. I have reviewed and agree with the care plan. History and Exam by me shows: Patient seen in the ICU currently sitting on the commode. Denies any abdominal pain on examination abdomen is soft. There is no blood in the commode. Patient denies seeing any blood in his stool. Assessment: Patient with severe anemia along with pancytopenia. Has history of aortic valve replacement and currently is on anticoagulant with a supratherapeutic INR. Recommendation: Follow H&H transfuse as needed patient will reprep for possible enteroscopy and colonoscopy in the morning.( Per patient he had an EGD done at [facility] but he denies having a colonoscopy done).
--- NOTE | 2017-10-31 16:19 | Internal Med Progress Note ---
Hospitalist Progress Note - Encounter Date of Encounter: 10/31/17 Time of Encounter: 13:00 - Subjective Interval History: H&Previewed. Also spoke to his primary care provider over the phone for more information. Patient has history of AV replacement, EtOH abuse (quit 4-5 years ago), HIT, and recent GI bleed in August 2017 requiring multiple transfusion of PRBCs and FFP at [facility], is admitted due to recurrent GI bleed. Hb 6.9 on presentation but hemodynamically stable. Other labs notable for thrombocytopenia, supratherapeutic INR, and AoCKD. Patient had 2 units of PRBC overnight with his Hb increasing to 8.8 -> dropped back down to 7 later in the afternoon. Also received FFP x 2. Symptoms of SOB, weakness largely unchanged since yesterday. No dysuria, urinary frequency. - Exam Vitals: Temp Pulse Resp BP Pulse Ox 97.4 F L 98 24 149/100 100 10/31/17 08:11 10/31/17 15:00 10/31/17 15:00 10/31/17 15:00 10/31/17 15:00 Exam: General: Alert and oriented, not in acute distress. Cardiovascular: Normal rate and rhythm Lungs: clear to auscultation, no wheezes/rales Abdomen:Soft, non-tender, no rigidity. Extremities:No deformity or swelling - Assessment and Plan (1) GI bleed Current Visit: Yes Status: Acute Assessment and Plan: Acute GI bleed, Hb dropped from 8.8 on 10/29 to 6.9 on presentation. Recent admission at [facility] for similar complaints, EGD/colonoscopy reportedly normal per patient s/p 2U pRBC -> 8.8 afterward but again dropped to 7 this afternoon transfuse 1U pRBC and check H&H Q6 GI input appreciated, plan for push enteroscopy once INR ~ 1.5 Plt 67, patient apparently has history of HIT, transfuse if <50 in the setting of bleeding INR 2.3 after FFP x 2 and vitamin K, 1 more dose of Vit K today continue PPI gtt for now (2) Elevated INR Current Visit: Yes Status: Acute Assessment and Plan: Pt. on Coumadin d/t hx of AV replacement and CVA/TIAs. Pt. given Phytonadione in ED and also received FFP 1 more dose of Vit K today and monitor (3) Thrombocytopenia Current Visit: Yes Status: Acute Assessment and Plan: appears to be chronic, at least since 08/2016 93 -> 67, would transfuse Plt if less than 50 in the setting of GI bleed endorses history of heavy drinking in the past, quit 4 years ago check US liver for ?cirrhosis (4) Acute on chronic renal failure Current Visit: Yes Status: Acute Assessment and Plan: Hx of CKD, Cr around 1.2-3 at baseline Presented with Cr 1.75 -> improved after IVF continue IVF today while remaining NPO (5) HTN (hypertension) Current Visit: Yes Status: Chronic Assessment and Plan: hold off on oral meds, PRN hydralazine (6) HLD (hyperlipidemia) Current Visit: Yes Status: Chronic Assessment and Plan: resume home meds once acute issues resolve (7) Abnormal urinalysis Current Visit: Yes Status: Acute Assessment and Plan: Patient's primary care provider was concerned about UTI for him but patient does not have any symptoms. Urinalysis showed moderate amount of leukocyte esterase Urine culture pending, will consider treating once culture result is available (8) DVT prophylaxis Current Visit: Yes Status: Acute Assessment and Plan: Bilateral SCDs on LEs - Time Spent with Patient Total time spent is greater than 50% in coordination of care (as documented) at patient's floor/unit and/or counseling patient: Greater than 35 minutes Plan of Care Discussed with: nurse Internal Medicine: Result - Labs CBC & Chem 7: 10/31/17 11:29 10/31/17 04:23 Labs: Short CBC 10/31/17 10/31/17 10/31/17 Range/Units 00:18 01:56 04:23 WBC 3.5 L (4.3-11.1) K/mcL Hgb 8.8 L D 8.3 L 7.5 L (12.9-16.9) g/dL Hct 25.7 L 24.1 L 20.3 L (37.5-50.1) % Plt Count 67 L (140-400) K/mcL Neutrophils # 2.4 (1.6-8.9) K/mcL 10/31/17 10/31/17 Range/Units 06:35 11:29 WBC (4.3-11.1) K/mcL Hgb 8.3 L 7.0 L (12.9-16.9) g/dL Hct 18.7 L 16.8 L (37.5-50.1) % Plt Count (140-400) K/mcL Neutrophils # (1.6-8.9) K/mcL BMP 10/31/17 04:23 Sodium 138 Potassium 4.1 Chloride 113 H Carbon Dioxide 18 L BUN 72 H Creatinine 1.35 H Glucose 97 Calcium 8.2 L Liver Function 10/31/17 Range/Units 04:23 Total Bilirubin 0.4 (0.3-1.0) mg/dL AST 49 H (13-39) Units/L ALT 57 H (7-52) Units/L Alkaline Phosphatase 109 H (34-104) Units/L Albumin 2.9 L (3.5-5.7) g/dL Urine 10/31/17 Range/Units 06:36 Urine Color Yellow (Yellow) Urine Clarity Cloudy A (Clear) Urine pH 6.0 (5.0-8.0) pH Units Ur Specific [place] 1.010 (1.010-1.025) Urine Protein Negative (Neg-Trace) mg/dL Urine Glucose (UA) Normal (Normal) mg/dL Urine Clinitest (Negative) - ABG Interpretation ABG results: PT/INR, D-dimer PT 25.9 Seconds (9.4-12.1) H D 10/31/17 04:23 - Impressions Impressions Abdomen CT 10/31/17 14:36 IMPRESSION: No CT features of hepatic cirrhosis. Incidentally noted pulmonary emphysema and right basilar atelectasis versus infiltrate. D/ / Tim Darling MD / Tim Darling MD Interpreting Provider: Tim Darling MD Consult Discharge Plan - Plan Referrals: Mona Andersen, EMPLOYMENT OFFICER [Primary Care Provider] - (1) GI bleed Qualifiers: GI bleed type/associated pathology: unspecified gastrointestinal hemorrhage type Qualified Code(s): K92.2 - Gastrointestinal hemorrhage, unspecified (4) Acute on chronic renal failure Qualifiers: Acute renal failure type: unspecified Chronic kidney disease stage: stage 3 ( moderate) Qualified Code(s): N17.9 - Acute kidney failure, unspecified; N18.3 - Chronic kidney disease, stage 3 (moderate) (5) HTN (hypertension) Qualifiers: Hypertension type: essential hypertension Qualified Code(s): I10 - Essential (primary) hypertension (6) HLD (hyperlipidemia) Qualifiers: Hyperlipidemia type: pure hypercholesterolemia Qualified Code(s): E78.00 - Pure hypercholesterolemia, unspecified; E78.0 - Pure hypercholesterolemia
[2017-10-31 17:00] LABS: Hematocrit 19.8 % (37.5-50.1); Hemoglobin 6.4 g/dL (12.9-16.9)
[2017-10-31] MEDS ORDERED: 0.9 % Sodium Chloride 500 ML ONE (17:15)
[2017-10-31] MEDS ORDERED: SODIUM CHLORIDE/NAHCO3/KCL/PEG 4,000 ML SOLN.RECON PO ONE (18:24)
[2017-11-01 00:22] LABS: Hematocrit 26.2 % (37.5-50.1)
[2017-11-01 00:23] LABS: Hemoglobin 8.8 g/dL (12.9-16.9)
[2017-11-01] MEDS: Pantoprazole 40 MG in 0.9 % Sodium Chloride Mini Bag 100 ML IVC SCH ×5 (03:44→20:55)
[2017-11-01 04:09] LABS: Immature Granulocytes % 1.5 % (0-4)
[2017-11-01 04:11] LABS: Basophils % 0.6 %; Eosinophils % 0.3 %; Hematocrit 21.8 % (37.5-50.1); Hemoglobin 7.8 g/dL (12.9-16.9); Immature Platelets 16.8 % (1.1-6.1); Lymphocytes # 1.3 K/mcL (0.6-4.6); Lymphocytes % 39.9 %; Mean Corpuscular HGB Conc 35.8 g/dL (31.6-35.5); Mean Corpuscular Hemoglobin 34.2 pg (28.0-33.3); Mean Corpuscular Volume 95.6 fL (83.0-100.0); Mean Platelet Volume 14.8 fL (9.4-12.4); Monocytes # 0.2 K/mcL (0.0-1.3); Neutrophils # 1.7 K/mcL (1.6-8.9); Nucleated Red Blood Cells 0.6 /100 WBC (0); Red Blood Count 2.28 M/mcL (4.19-5.50); Red Cell Distribution Width 16.7 % (11.5-14.5); Segmented Neutrophils % 51.7 %
[2017-11-01 04:15] LABS: INR 1.7; Prothrombin Time 19.5 Seconds (9.4-12.1)
[2017-11-01 04:26] LABS: Platelet Count 63 K/mcL (140-400)
[2017-11-01 04:31] LABS: Alanine Aminotransferase 49 Units/L (7-52); Albumin 2.6 g/dL (3.5-5.7); Albumin/Globulin Ratio 1.3 (1.1-2.2); Alkaline Phosphatase 88 Units/L (34-104); Aspartate Amino Transferase 42 Units/L (13-39); BUN/Creatinine Ratio 57 (6-26); Bilirubin,Total 0.4 mg/dL (0.3-1.0); Blood Urea Nitrogen 64 mg/dL (6-20); Calcium 7.7 mg/dL (8.6-10.3); Carbon Dioxide 16 mEq/L (23-29); Chloride 119 mEq/L (98-107); Glucose 114 mg/dL (70-105); Osmolality,Calculated 307 (280-300); Sodium 139 mEq/L (136-145); Total Protein 4.6 g/dL (6.4-8.9); eGFR For Non-African Americans > 60 (> 60)
[2017-11-01 04:43] LABS: Anisocytosis 1+ (Not Present); Macrocytosis Present (Not Present); Platelet Estimate Decreased (Normal)
[2017-11-01 06:47] LABS: Hematocrit 24.3 % (37.5-50.1); Hemoglobin 8.2 g/dL (12.9-16.9)
[2017-11-01] MEDS: Verapamil ER (24 HR) 120 MG TABLET.ER PO SCH (08:56)
[2017-11-01] MEDS ORDERED: (Umeclidinium Brm/Vilanterol Tr [Anoro Ellipta 62.5-2) IH SCH (09:00)
[2017-11-01] MEDS: Ondansetron 4 MG/2 ML VIAL IVP PRN (09:53)
--- NOTE | 2017-11-01 13:09 | Internal Med Progress Note ---
Hospitalist Progress Note - Encounter Date of Encounter: 11/01/17 Time of Encounter: 09:50 - Subjective Interval History: Hb further dropped to 6.4 yesterday, requiring 2U pRBC. BP remained rather elevated but persistently tachycardic. No report of melena, hematochezia. Hb this AM is 8.2. No chest pain, SOB, lightheadedness. - Exam Vitals: Temp Pulse Resp BP Pulse Ox 98.6 F 110 18 149/106 99 11/01/17 11:37 11/01/17 12:00 11/01/17 09:00 11/01/17 09:00 11/01/17 09:00 Exam: General: Alert and oriented, not in acute distress. Cardiovascular: Normal rate and rhythm Lungs: clear to auscultation, no wheezes/rales Abdomen:Soft, non-tender, no rigidity. Extremities:No deformity or swelling - Assessment and Plan (1) GI bleed Current Visit: Yes Status: Acute Assessment and Plan: Acute GI bleed, required 4U pRBC so far Recent admission at [facility] for similar complaints, spoke to pt's PCP for more info , it appears that patient only had EGD done which showed bleeding Dieulafoy lesion Hb 8.2 this AM, BP stable (if not high) but tachycardic spoke to GI, will plan for procedure today INR 1.7 after Vit K, Plt Plt 63, patient apparently has ?history of HIT, transfuse if <50 in the setting of bleeding continue PPI gtt for now (2) Elevated INR Current Visit: Yes Status: Acute Assessment and Plan: Pt. on Coumadin d/t hx of AV replacement and CVA/TIAs. Pt. given Phytonadione in ED and also received FFP 1 more dose of Vit K given yesterday and 1.7 today (3) Thrombocytopenia Current Visit: Yes Status: Acute Assessment and Plan: appears to be chronic, at least since 08/2016 93 -> 63, would transfuse Plt if less than 50 in the setting of GI bleed endorses history of heavy drinking in the past, quit [address] did not show any evidence of cirrhosis (4) Acute on chronic renal failure Current Visit: Yes Status: Acute Assessment and Plan: Hx of CKD, Cr around 1.2-3 at baseline normalized with IVF (5) HTN (hypertension) Current Visit: Yes Status: Chronic Assessment and Plan: hold off on oral meds but restart verapamil in view of tachycardia PRN hydralazine (6) HLD (hyperlipidemia) Current Visit: Yes Status: Chronic Assessment and Plan: resume home meds once acute issues resolve (7) Abnormal urinalysis Current Visit: Yes Status: Acute Assessment and Plan: Patient's primary care provider was concerned about UTI for him but patient does not have any symptoms. Urinalysis showed moderate amount of leukocyte esterase Urine culture pending, will consider treating once culture result is available (8) DVT prophylaxis Current Visit: Yes Status: Acute Assessment and Plan: Bilateral SCDs on LEs - Time Spent with Patient Total time spent is greater than 50% in coordination of care (as documented) at patient's floor/unit and/or counseling patient: Greater than 35 minutes Plan of Care Discussed with: service delivery management consultant (GI and PCP) Internal Medicine: Result - Labs CBC & Chem 7: 11/01/17 06:36 11/01/17 03:46 Labs: Short CBC 10/31/17 11/01/17 11/01/17 Range/Units 16:48 00:05 03:46 WBC 3.3 L (4.3-11.1) K/mcL Hgb 6.4 L 8.8 L D 7.8 L (12.9-16.9) g/dL Hct 19.8 L 26.2 L 21.8 L (37.5-50.1) % Plt Count 63 L (140-400) K/mcL Neutrophils # 1.7 (1.6-8.9) K/mcL 11/01/17 Range/Units 06:36 WBC (4.3-11.1) K/mcL Hgb 8.2 L (12.9-16.9) g/dL Hct 24.3 L (37.5-50.1) % Plt Count (140-400) K/mcL Neutrophils # (1.6-8.9) K/mcL BMP 11/01/17 03:46 Sodium 139 Potassium 4.0 Chloride 119 H Carbon Dioxide 16 L BUN 64 H Creatinine 1.13 Glucose 114 H Calcium 7.7 L Liver Function 11/01/17 Range/Units 03:46 Total Bilirubin 0.4 (0.3-1.0) mg/dL AST 42 H (13-39) Units/L ALT 49 (7-52) Units/L Alkaline Phosphatase 88 (34-104) Units/L Albumin 2.6 L (3.5-5.7) g/dL - ABG Interpretation ABG results: PT/INR, D-dimer PT 19.5 Seconds (9.4-12.1) H 11/01/17 03:46 - Impressions Impressions Abdomen CT 10/31/17 14:36 IMPRESSION: No CT features of hepatic cirrhosis. Incidentally noted pulmonary emphysema and right basilar atelectasis versus infiltrate. D/ / Tim Darling MD / Tim Darling MD Interpreting Provider: Tim Darling MD - VTE Documentation of Mechanical Device: Intermittent pneumatic compression device Consult Discharge Plan - Plan Referrals: Mona Andersen, CAREER AND GUIDANCE COUNSELOR [Primary Care Provider] - (1) GI bleed Qualifiers: GI bleed type/associated pathology: unspecified gastrointestinal hemorrhage type Qualified Code(s): K92.2 - Gastrointestinal hemorrhage, unspecified (4) Acute on chronic renal failure Qualifiers: Acute renal failure type: unspecified Chronic kidney disease stage: stage 3 ( moderate) Qualified Code(s): N17.9 - Acute kidney failure, unspecified; N18.3 - Chronic kidney disease, stage 3 (moderate) (5) HTN (hypertension) Qualifiers: Hypertension type: essential hypertension Qualified Code(s): I10 - Essential (primary) hypertension (6) HLD (hyperlipidemia) Qualifiers: Hyperlipidemia type: pure hypercholesterolemia Qualified Code(s): E78.00 - Pure hypercholesterolemia, unspecified; E78.0 - Pure hypercholesterolemia
--- NOTE | 2017-11-01 13:16 | Anesthesia Evaluation PreOp ---
Date of Encounter: 11/01/17 Time of Encounter: 14:55 - Past History Planned Operation: EGD Cardiac History: HTN, Hyperlipidemia, Cardiac Surgery (07/2015 - AVR) CONSULTANT INTERN History: CVA (RIGHT SIDE WEAKNESS), TIA Other Medical History: Renal, Bleeding, Other (POST 4 PRBC, AND 2 FFP) Anesthesia History: No Prior Anesthetic Complications, Past Anesthesia Alcohol Use: none Drug use: none Medications and Allergies Albuterol Sulfate [Albuterol Inhaler] 1 puff IH Q4H PRN 10/30/17 [History] Amitriptyline HCl 100 mg PO HS 10/30/17 [History] Aspirin [Lo-Dose Aspirin EC] 81 mg PO DAILY 10/30/17 [History] Atorvastatin [Lipitor] 40 mg PO HS 10/30/17 [History] Docusate [Colace] 100 mg PO DAILY PRN 10/30/17 [History] Ferrous Sulfate 325 mg PO DAILY 10/30/17 [History] Folic Acid 0.8 mg PO DAILY 10/30/17 [History] Gabapentin [Neurontin] 300 mg PO TID 10/30/17 [History] Lisinopril/Hydrochlorothiazide [Zestoretic 20-25 mg Tablet] 1 tab PO DAILY 10/30 [History] Melatonin 5 mg PO HS PRN 10/30/17 [History] Pantoprazole Sodium [Protonix] 40 mg PO DAILY 10/30/17 [History] Sennosides [Senna] 17.2 mg PO HS PRN 10/30/17 [History] Tamsulosin [Flomax] 0.4 mg PO DAILY 10/30/17 [History] Umeclidinium Brm/Vilanterol Tr [Anoro Ellipta 62.5-25 Mcg INH] 1 puff IH DAILY 10/30/17 [History] Verapamil HCl [Verapamil ER] 120 mg PO DAILY 10/30/17 [History] Warfarin [Coumadin] 11.25 mg PO [id number] 10/30/17 [History] Warfarin [Coumadin] 15 mg PO SUTH 10/30/17 [History] 3 Allergy/AdvReac Type Severity Reaction Status Date / Time Bee Pollen Allergy Hives Verified 10/30/17 19:37 Penicillins Allergy Hives Verified 10/30/17 19:37 tree nut Allergy Swelling Verified 10/30/17 19:37 of Lip/Tongue/Throat - Meds/Allergy Pre-op Review Medications Reviewed: Yes Allergies Reviewed: Yes Anesthesia Results - Labs 11/01/17 06:36 11/01/17 03:46 Laboratory Last Values WBC 3.3 K/mcL (4.3-11.1) L 11/01/17 03:46 RBC 2.28 M/mcL (4.19-5.50) L 11/01/17 03:46 Hgb 8.2 g/dL (12.9-16.9) L 11/01/17 06:36 Hct 24.3 % (37.5-50.1) L 11/01/17 06:36 MCV 95.6 fL (83.0-100.0) 11/01/17 03:46 MCH 34.2 pg (28.0-33.3) H 11/01/17 03:46 MCHC 35.8 g/dL (31.6-35.5) H 11/01/17 03:46 RDW 16.7 % (11.5-14.5) H 11/01/17 03:46 Plt Count 63 K/mcL (140-400) L 11/01/17 03:46 MPV 14.8 fL (9.4-12.4) H 11/01/17 03:46 Immature Gran % 1.5 % (0-4) 11/01/17 03:46 Seg Neutrophils % 51.7 % 11/01/17 03:46 Lymphocytes % 39.9 % 11/01/17 03:46 Monocytes % 6.0 % 11/01/17 03:46 Eosinophils % 0.3 % 11/01/17 03:46 Basophils % 0.6 % 11/01/17 03:46 Neutrophils # 1.7 K/mcL (1.6-8.9) 11/01/17 03:46 Lymphocytes # 1.3 K/mcL (0.6-4.6) 11/01/17 03:46 Monocytes # 0.2 K/mcL (0.0-1.3) 11/01/17 03:46 Eosinophils # 0.0 K/mcL (0.0-0.6) 11/01/17 03:46 Basophils # 0.0 K/mcL (0.0-0.2) 11/01/17 03:46 Nucleated RBCs/100 WBC 0.6 /100 WBC (0) H 11/01/17 03:46 Platelet Estimate Decreased (Normal) L 11/01/17 03:46 Immature Plt Fraction 16.8 % (1.1-6.1) H 11/01/17 03:46 Anisocytosis 1+ (Not Present) A 11/01/17 03:46 Macrocytosis Present (Not Present) A 11/01/17 03:46 PT 19.5 Seconds (9.4-12.1) H 11/01/17 03:46 INR 1.7 11/01/17 03:46 Sodium 139 mEq/L (136-145) 11/01/17 03:46 Potassium 4.0 mEq/L (3.5-5.1) 11/01/17 03:46 Chloride 119 mEq/L (98-107) H 11/01/17 03:46 Carbon Dioxide 16 mEq/L (23-29) L 11/01/17 03:46 BUN 64 mg/dL (6-20) H 11/01/17 03:46 Creatinine 1.13 mg/dL (0.70-1.30) 11/01/17 03:46 Est GFR ( Amer) > 60 (> 60) 11/01/17 03:46 Est GFR (Non-Af Amer) > 60 (> 60) 11/01/17 03:46 BUN/Creatinine Ratio 57 (6-26) H 11/01/17 03:46 Glucose 114 mg/dL (70-105) H 11/01/17 03:46 POC Glucose 83 mg/dL (70-99) 10/30/17 20:29 Calculated Osmolality 307 (280-300) H 11/01/17 03:46 Calcium 7.7 mg/dL (8.6-10.3) L 11/01/17 03:46 Magnesium 1.8 mg/dL (1.6-2.6) 10/31/17 04:23 Total Bilirubin 0.4 mg/dL (0.3-1.0) 11/01/17 03:46 AST 42 Units/L (13-39) H 11/01/17 03:46 ALT 49 Units/L (7-52) 11/01/17 03:46 Alkaline Phosphatase 88 Units/L (34-104) 11/01/17 03:46 Troponin I < 0.03 ng/mL (< 0.04) 10/30/17 15:07 Serum Total Protein 4.6 g/dL (6.4-8.9) L 11/01/17 03:46 Albumin 2.6 g/dL (3.5-5.7) L 11/01/17 03:46 Globulin 2.0 g/dL (2.4-3.5) L 11/01/17 03:46 Albumin/Globulin Ratio 1.3 (1.1-2.2) 11/01/17 03:46 Triglycerides 118 mg/dL (< 150) 10/31/17 04:23 Cholesterol 77 mg/dL (< 200) 10/31/17 04:23 LDL Cholesterol, Calc 36 mg/dL (0-99) 10/31/17 04:23 VLDL Cholesterol, Calc 24 mg/dL (< 31) 10/31/17 04:23 HDL Cholesterol 17 mg/dL (40-59) L 10/31/17 04:23 Cholesterol/HDL Ratio 4.5 (0-4.9) 10/31/17 04:23 Urine Color Yellow (Yellow) 10/31/17 06:36 Urine Clarity Cloudy (Clear) A 10/31/17 06:36 Urine pH 6.0 pH Units (5.0-8.0) 10/31/17 06:36 Ur Specific [place] 1.010 (1.010-1.025) 10/31/17 06:36 Urine Protein Negative mg/dL (Neg-Trace) 10/31/17 06:36 Urine Glucose (UA) Normal mg/dL (Normal) 10/31/17 06:36 Urine Clinitest (Negative) 10/31/17 06:36 Urine Ketones Negative mg/dL (Negative) 10/31/17 06:36 Urine Blood Trace (Negative) H 10/31/17 06:36 Urine Nitrite Negative (Negative) 10/31/17 06:36 Urine Bilirubin Negative (Negative) 10/31/17 06:36 Urine Urobilinogen Normal mg/dL (Normal) 10/31/17 06:36 Ur Leukocyte Esterase Moderate (Negative) H 10/31/17 06:36 Urine Microscopic RBC 0-3 per hpf (0-3) 10/31/17 06:36 Urine Microscopic WBC 5-15 per hpf (0-3) H 10/31/17 06:36 Urine Bacteria Moderate per hpf (None-Few) H 10/31/17 06:36 Ur Culture Indicated? YES (NO) A 10/31/17 06:36 Stool Occult Bld Scrn Positive (Negative) A 10/30/17 16:09 Blood Type A POSITIVE 10/30/17 15:37 Antibody Screen NEGATIVE 10/30/17 15:37 Crossmatch See Detail 10/30/17 15:37 Anesthesia Exam Vital Signs/O2 Sat/Glucose, Most Recent Temp Pulse Resp BP Pulse Ox 98.6 F 110 18 149/106 99 11/01/17 11:37 11/01/17 12:00 11/01/17 09:00 11/01/17 09:00 11/01/17 09:00 Blood Glucose* 83 Weight: 72 KG NPO (# of Hours): 8 - HEENT Pupil (Motor): Pupils equal Mallampati: I Teeth: Edentulous Oral Opening: Greater than 3 - Cardiac Rhythm: Regular - Pulmonary Breath Sounds: bilateral Clear Respiratory Effort: Symmetrical - Additional Findings Active Medications Acetaminophen (Tylenol) 650 mg PO Q6HR PRN PRN Reason: Mild Pain/Fever Stop: 05/01/18 18:04 Last Admin: 10/31/17 14:34 Dose: 650 mg Albuterol/Ipratropium (Duoneb) 3 ml AER [id number] [facility] Stop: 05/03/18 16:01 Hydralazine HCl (Hydralazine) 10 mg IVP Q6HR PRN PRN Reason: Hypertension Stop: 05/02/18 01:52 Last Admin: 11/01/17 07:53 Dose: 10 mg Pantoprazole Sodium 40 mg/ (Sodium Chloride) 100 mls @ 20 mls/hr IVC .Q5H [facility] Stop: 05/01/18 18:16 Last Admin: 11/01/17 13:18 Dose: 20 mls/hr Sodium Chloride (0.45% Sodium Chloride 1000 Ml 1000 Ml) 1,000 mls @ 75 mls/hr IVC .[id number] [facility] Stop: 05/02/18 11:31 Last Admin: 11/01/17 03:43 Dose: 75 mls/hr Ondansetron HCl (Zofran) 4 mg IVP Q6HR PRN; Protocol PRN Reason: nausea/vomiting Stop: 05/02/18 06:32 Last Admin: 11/01/17 09:53 Dose: 4 mg Verapamil HCl (Calan Sr) 120 mg PO DAILY [facility] Stop: 05/03/18 09:01 Last Admin: 11/01/17 08:56 Dose: 120 mg Anesthesia Assess/Plan ASA Score: 4 Modified Central Scale for Level of Consciousness: Cooperative, oriented, and tranquil Anesthetic Plan: MAC Monitoring Plan: Standard Monitors Recovery Plan: Other
[2017-11-01] MEDS ORDERED: Tetracaine/Benzocaine/Butamben 200MG/SPRAY (100SPY/BOT) MM ONE (15:01)
[2017-11-01] MEDS ORDERED: Simethicone 40 MG/0.6 ML MLS IR ONE (15:01)
[2017-11-01] MEDS ORDERED: *HR* EPINEPHrine 1 MG/10 ML SYRINGE ONE (15:04)
--- NOTE | 2017-11-01 15:33 | Anesthesia Evaluation Post Op ---
Date of Encounter: 11/01/17 Time of Encounter: 15:30 - Vital Signs Vital Signs: 3 Vital Signs Time 1530 BP 123/77 Pulse 93 Resp 14 O2 Sat 99 - Lungs Lungs: Clear Ascult./Percussion - Airway Airway: Non-obstructed - Cardiovascular Regular Rate - Mental Status Mental Status: Alert & Oriented, Answers Appropriately - Nausea Vomiting Nausea Vomiting: Not Present - Hydration Hydration: NPO
[2017-11-01] MEDS: Ipratropium/Albuterol Neb 3 ML AER SCH ×2 (16:01→22:14)
[2017-11-01 18:42] LABS: Hematocrit 20.5 % (37.5-50.1); Hemoglobin 6.9 g/dL (12.9-16.9)
[2017-11-02 01:15] LABS: BUN/Creatinine Ratio 45 (6-26); Blood Urea Nitrogen 50 mg/dL (6-20); Calcium 7.8 mg/dL (8.6-10.3); Carbon Dioxide 17 mEq/L (23-29); Chloride 120 mEq/L (98-107); Glucose 102 mg/dL (70-105); Osmolality,Calculated 294 (280-300); Potassium 3.5 mEq/L (3.5-5.1); Sodium 135 mEq/L (136-145); eGFR For Non-African Americans > 60 (> 60)
[2017-11-02 01:49] LABS: Basophils % 0.2 %; Hematocrit 18.4 % (37.5-50.1); Red Blood Count 1.93 M/mcL (4.19-5.50)
[2017-11-02 01:51] LABS: Eosinophils % 0.7 %; Hemoglobin 6.2 g/dL (12.9-16.9); Immature Platelets 16.4 % (1.1-6.1); Lymphocytes # 1.5 K/mcL (0.6-4.6); Lymphocytes % 36.9 %; Mean Corpuscular HGB Conc 33.7 g/dL (31.6-35.5); Mean Corpuscular Hemoglobin 32.1 pg (28.0-33.3); Mean Corpuscular Volume 95.3 fL (83.0-100.0); Mean Platelet Volume 14.6 fL (9.4-12.4); Monocytes # 0.3 K/mcL (0.0-1.3); Monocytes % 8.2 %; Neutrophils # 2.1 K/mcL (1.6-8.9); Red Cell Distribution Width 16.4 % (11.5-14.5)
[2017-11-02] MEDS: Pantoprazole 40 MG in 0.9 % Sodium Chloride Mini Bag 100 ML IVC SCH ×2 (02:00→06:31)
[2017-11-02 02:04] LABS: Platelet Count 64 K/mcL (140-400)
[2017-11-02 02:41] LABS: Platelet Estimate Decreased (Normal)
[2017-11-02] MEDS: Ipratropium/Albuterol Neb 3 ML AER SCH ×2 (03:52→11:11)
[2017-11-02] MEDS: Verapamil ER (24 HR) 120 MG TABLET.ER PO SCH (09:06)
[2017-11-02] MEDS ORDERED: Pantoprazole 40 MG VIAL IVP SCH (10:17)
[2017-11-02 11:35] VITALS: BP 168/98
--- NOTE | 2017-11-02 14:07 | Discharge Summary ---
- NOTES TO OUTPATIENT PROVIDER Notes to Outpatient Provider: Mr. 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 He was noted to have supratherapeutic INR and hemoglobin of 6.9 on presentation. Also had acute on chronic kidney injury which improved with IV fluid and transfusion. INR reversed with IV VIt K and FFP. He had a total of 5U pRBC during the admission and EGD showed 1 bleeding Dieulafoy lesion s/p APC by GI. He continued to have small drop in hemoglobin post-procedure and was advised to stay inpatient for further monitoring which he declined and left AMA despite understanding the risk of hypovolemic shock and . He was advised to hold off on Coumadin and aspirin until he is reevaluated for GI bleed. Before he was given his update list of medications, he physically left the hospital with his family members. Date of Encounter: 11/02/17 Time of Encounter: 13:00 - Discharge Diagnosis (1) GI bleed Priority: Primary Status: Acute Qualifiers: GI bleed type/associated pathology: unspecified gastrointestinal hemorrhage type Qualified Code(s): K92.2 - Gastrointestinal hemorrhage, unspecified (2) Elevated INR Priority: Secondary Status: Acute (3) Thrombocytopenia Priority: Secondary Status: Acute (4) Acute on chronic renal failure Priority: Secondary Status: Acute Qualifiers: Acute renal failure type: unspecified Chronic kidney disease stage: stage 3 (moderate) Qualified Code(s): N17.9 - Acute kidney failure, unspecified; N18.3 - Chronic kidney disease, stage 3 (moderate) (5) HTN (hypertension) Priority: Secondary Status: Chronic Qualifiers: Hypertension type: essential hypertension Qualified Code(s): I10 - Essential (primary) hypertension (6) HLD (hyperlipidemia) Priority: Secondary Status: Chronic Qualifiers: Hyperlipidemia type: pure hypercholesterolemia Qualified Code(s): E78.00 - Pure hypercholesterolemia, unspecified; E78.0 - Pure hypercholesterolemia (7) Abnormal urinalysis Priority: Secondary Status: Acute (8) DVT prophylaxis Priority: Secondary Status: Acute Hospital course: Mr. 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 He was noted to have supratherapeutic INR and hemoglobin of 6.9 on presentation. Also had acute on chronic kidney injury which improved with IV fluid and transfusion. INR reversed with IV VIt K and FFP. He had a total of 5U pRBC during the admission and EGD showed 1 bleeding Dieulafoy lesion s/p APC by GI. He continued to have small drop in hemoglobin post-procedure and was advised to stay inpatient for further monitoring which he declined and left AMA despite understanding the risk of hypovolemic shock and . He was advised to hold off on Coumadin and aspirin until he is reevaluated for GI bleed. Before he was given his update list of medications, he physically left the hospital with his family members. Discharge discussed with: patient, nurse - Time Spent with Patient Total time spent providing and/or coordinating discharge services: Greater than 30 minutes - Discharge Medications Home Medications: Albuterol Sulfate [Albuterol Inhaler] 1 puff IH Q4H PRN 10/30/17 [History] Amitriptyline HCl 100 mg PO HS 10/30/17 [History] Atorvastatin [Lipitor] 40 mg PO HS 10/30/17 [History] Docusate [Colace] 100 mg PO DAILY PRN 10/30/17 [History] Ferrous Sulfate 325 mg PO DAILY 10/30/17 [History] Folic Acid 0.8 mg PO DAILY 10/30/17 [History] Gabapentin [Neurontin] 300 mg PO TID 10/30/17 [History] Melatonin 5 mg PO HS PRN 10/30/17 [History] Pantoprazole Sodium [Protonix] 40 mg PO DAILY 10/30/17 [History] Sennosides [Senna] 17.2 mg PO HS PRN 10/30/17 [History] Tamsulosin [Flomax] 0.4 mg PO DAILY 10/30/17 [History] Umeclidinium Brm/Vilanterol Tr [Anoro Ellipta 62.5-25 Mcg INH] 1 puff IH DAILY 10/30/17 [History] Verapamil HCl [Verapamil ER] 120 mg PO DAILY 10/30/17 [History] Allergies/Adverse Reactions: 3 Allergy/AdvReac Type Severity Reaction Status Date / Time Bee Pollen Allergy Hives Verified 10/30/17 19:37 Penicillins Allergy Hives Verified 10/30/17 19:37 tree nut Allergy Swelling Verified 10/30/17 19:37 of Lip/Tongue/Throat Date of admission: 10/30/17 22:40 Primary care physician: Mona Andersen CNP - Constitutional Vitals: Temp Pulse Resp BP Pulse Ox 98.3 F 113 19 168/98 99 11/02/17 11:42 11/02/17 11:42 11/02/17 11:42 11/02/17 11:42 11/02/17 11:42 General appearance: Present: mild distress (Fatigue/weakness), A&O X 3, pleasant , underweight, answers questions appropriately Exam: General: Alert and oriented, not in acute distress. Cardiovascular: Normal rate and rhythm Lungs: clear to auscultation, no wheezes/rales Abdomen:Soft, non-tender, no rigidity. Extremities:No deformity or swelling - Patient Status Disposition: Left Against Medical Advice Condition: Serious - Discharge Instructions Instructions: Anemia (GEN), Chronic Hypertension (DC) Follow Up With: Mona Andersen CNP [Primary Care Provider] - - VTE Documentation of Mechanical Device: Intermittent pneumatic compression device
--- NOTE | 2017-11-04 15:42 | Electrocardiograph Report ---
[address] [address] Test Date: 2017-10-30 Pat Name: Ksah Humphrey Department: [id number] Room: 2A Gender: M Clinical Dental Technician: : [id number] Requested By: Su Mahoney Order Number: [id number] Reading MD: Girish Jason Measurements Intervals [place] Rate: 86 P: 47 OH: 209 QRS: 28 QRSD: 93 T: 48 QT: 375 QTc: 449 Interpretive Statements Sinus rhythm Borderline prolonged OH interval Possible left atrial enlargement Electronically Signed On 11-04-2017 15:40:21 EDT by Girish Jason
== END 2017-11-02 14:20 | disposition left against medical advice (07) | DRG 378 ==
LOC: 2NENU 14:49 → EMEROOARM 14:49 → ICNU 19:07 → SUATTDRO 22:40 → 2ANU 11-01 15:59
PROVIDERS: ADMIT Nurse Practitioner Family; ATTEND Internal Medicine